=== PATIENT | male | born 1940 | race Caucasian/White ===

== ENCOUNTER 2021-06-24 20:29 | Inpatient (IN) | payer MEDICARE ==
[~2021-06-24] VITALS: Ht 182.9 cm; Wt 118.2 kg
[2021-06-24 22:05] LABS: BASOPHILS # (AUTO) 0.1 X10'3 (0-0.2); BASOPHILS % (AUTO) 0.7 % (0-1); EOSINOPHILS # (AUTO) 0.5 X10'3 (0-0.9); EOSINOPHILS % (AUTO) 5.6 % (0-6); HEMATOCRIT 42.9 % (42.0-52.0); HEMOGLOBIN 14.5 g/dl (14.0-17.9); LYMPHOCYTES # (AUTO) 1.1 X10'3 (1.1-4.8); LYMPHOCYTES % (AUTO) 13.5 % (21-51); MEAN CORPUSCULAR HEMOGLOBIN 33.4 PG (27.0-31.0); MEAN CORPUSCULAR HGB CONC 33.8 g/dL (33.0-36.5); MEAN CORPUSCULAR VOLUME 98.8 FL (78-98); MEAN PLATELET VOLUME 8.5 FL (7.4-10.4); MONOCYTES # (AUTO) 0.6 X10'3 (0-0.9); MONOCYTES % (AUTO) 6.7 % (2-12); NEUTROPHILS # (AUTO) 6.1 X10'3 (1.8-7.7); NEUTROPHILS % (AUTO) 73.5 % (42-75); PLATELET COUNT 208 X10'3 (140-440); RED BLOOD COUNT 4.34 X10'6 (4.70-6.10); RED CELL DISTRIBUTION WIDTH 13.3 % (11.5-14.5); WHITE BLOOD COUNT 8.4 X10'3 (4.5-11.0)
[2021-06-24 22:32] LABS: ALBUMIN 2.8 G/DL (3.4-5.0); ANION GAP 11 (8-16); BLOOD UREA NITROGEN 30 MG/DL (7-18); BUN/CREATININE RATIO 15.2 (5.4-32.0); CALCIUM 7.7 MG/DL (8.5-10.1); CHLORIDE 112 MMOL/L (99-107); CREATININE 1.97 MG/DL (0.60-1.10); POTASSIUM 4.6 MMOL/L (3.5-5.1); SODIUM 145 MMOL/L (135-145); TOTAL CARBON DIOXIDE 22.4 MMOL/L (24-32); eGFR 33 ML/MIN
[2021-06-24 22:56] LABS: GLUCOSE 164 MG/DL (70-104)
--- NOTE | 2021-06-24 23:29 | NUR ---
PT UP OUT OF BED TO BATHROOM . INDEPENDENT STEADY GAIT .
[2021-06-25] MEDS: normal saline 1000ml 1,000 ML IV SCH ×2 (01:40→15:05)
[2021-06-25] MEDS ORDERED: magnesium 4gm in 100ml NS 100 ML IV PRN (01:40)
[2021-06-25] MEDS ORDERED: ondansetron/PF 4mg/2ml inj IV PRN (01:40)
[2021-06-25] MEDS ORDERED: potassium Cl 40MEQ/1/2NS 520ml 520 ML IV PRN ×2 (01:40)
[2021-06-25] MEDS ORDERED: magnesium 2GM in 50ml NS 50 ML IV PRN (01:40)
[2021-06-25] MEDS ORDERED: magnesium Cl slow-release 64mg tablet PO PRN (01:40)
[2021-06-25] MEDS ORDERED: potassium Cl 20 mEq SR tablet PO PRN ×2 (01:40)
[2021-06-25] MEDS ORDERED: acetaminophen 325mg tablet PO PRN ×2 (01:40)
[2021-06-25] MEDS ORDERED: MESSAGE TO PHARMACY PO ONE (01:45)
[2021-06-25] MEDS ORDERED: dextrose ORAL solution 15 GM/59 ML bottle PO PRN ×2 (01:45)
[2021-06-25] MEDS ORDERED: glucagon, human recombinant 1mg kit SUBCUT PRN (01:45)
[2021-06-25] MEDS ORDERED: dextrose 50%-water 50ml dispensing syringe IV PRN ×2 (01:45)
[2021-06-25] MEDS ORDERED: OMEP-50 PO (02:02)
[2021-06-25] MEDS ORDERED: LISI40TA13 PO (02:07)
[2021-06-25] MEDS ORDERED: ATOR10TA70 PO (02:07)
[2021-06-25] MEDS ORDERED: ASPI-611 PO (02:07)
[2021-06-25] MEDS ORDERED: METO-384 PO (02:07)
[2021-06-25] MEDS ORDERED: FLO0.4C PO (02:07)
[2021-06-25] MEDS ORDERED: DOXA4TAB5 PO (02:07)
[2021-06-25] MEDS ORDERED: SENN15TA6 PO (02:09)
--- NOTE | 2021-06-25 06:57 | NUR ---
patient asleep. We will monitor.
[2021-06-25] MEDS: K and/or MAG REPLACEMENT MC SCH ×2 (08:00→19:38)
[2021-06-25] MEDS ORDERED: PERFLUTREN PROTEIN-A MICROSPHR (Optison) 0.22 MG/ML 3ML VIAL IV ONE (08:00)
--- NOTE | 2021-06-25 08:09 | NUR ---
cardiac catheterization technician at bedside doing carotid ultrasound.
[2021-06-25] MEDS: heparin, porcine 5000 units/ml vial SQ SCH ×2 (08:39→20:00)
--- NOTE | 2021-06-25 08:40 | NUR ---
meds still not on emar, will call pharmacy.
--- NOTE | 2021-06-25 08:51 | NUR ---
no morning meds in emar,bp High paged Hospitalist.
--- NOTE | 2021-06-25 09:00 | NUR ---
1400ml yellow urine emptie from urinal.
--- NOTE | 2021-06-25 09:09 | NUR ---
paged Dr. Cochran regarding bp.
--- NOTE | 2021-06-25 09:26 | NUR ---
spoke to Dr. Cochran,ordered hydralazine 5mg IVP Q6 hours prn SBP >160mmhg.Also told her that meds needs to be finalized in med rec, said " ill do it when i get a chance".
[2021-06-25] MEDS: hydrALAZINE 20mg/ml inj. IV PRN ×2 (10:07→17:37)
--- NOTE | 2021-06-25 11:21 | NUR ---
Dr. Cochran aware about aptient's bp inspite of hydralazine,no new order at this time,given MRI screening form.
--- NOTE | 2021-06-25 11:56 | NUR ---
patient to MRI.
--- NOTE | 2021-06-25 14:15 | NUR ---
DR. GARCIA AT BEDSIDE,ORDERED TO DECREASE FLOMAX TO ONE CASPULE, ORTHO BP AND HYDRALAZINE 25MG PO q8 HOURS.
[2021-06-25] MEDS: insulin Lispro (HumaLOG) vial - multi-dose SQ SCH ×2 (14:25→20:42)
--- NOTE | 2021-06-25 14:30 | NUR ---
BP STILL HIGH 200/69,NOT DUE FOR HYDRALAZINE YET,CALLED PHARMACY TO RETIME SCHEDULED HOMEMEDS TO BE DUE NOW EXCEPT FLOMAX AND DOXAZOSINE HE TAKES THESE AT NIGHT.
[2021-06-25] MEDS: hyDRALAzine 10mg tablet PO SCH (15:04)
[2021-06-25] MEDS: metoprolol succinate 25mg (24-HOUR) SR. Tablet PO SCH (15:04)
[2021-06-25] MEDS: aspirin 81mg, enteric-coated 1 TAB TABLET.DR PO SCH (15:05)
[2021-06-25] MEDS: lisinopril 20mg tablet PO SCH (15:05)
--- NOTE | 2021-06-25 19:54 | NUR ---
PT DINNER TRAY PICKED UP BEFORE NUTRITIONAL CARBS MARIAA TO BE CALCULATED AND NO DINNER CARBS DOCUMENTED. DID NOT ADMINISTER NUTRITIONAL INSULIN DOSE DUE TO UNKNOWN CARB INTAKE. BG 227.
[2021-06-25] MEDS: doxazosin mesylate 2mg tablet PO SCH (20:56)
[2021-06-25] MEDS ORDERED: temazepam 15mg capsule PO PRN (21:00)
[2021-06-25] MEDS ORDERED: tamsulosin 0.4mg capsule PO SCH ×3 (21:00)
[2021-06-25] MEDS ORDERED: insulin glargine (Lantus) pen - multi-dose SQ SCH (21:00)
[2021-06-25] MEDS ORDERED: atorvastatin 10mg tablet PO SCH (21:00)
[2021-06-26] MEDS: hydrALAZINE 20mg/ml inj. IV PRN (02:18)
[2021-06-26] MEDS: hyDRALAzine 10mg tablet PO SCH ×2 (02:25→08:00)
[2021-06-26 03:57] LABS: BASOPHILS # (AUTO) 0.1 X10'3 (0-0.2); BASOPHILS % (AUTO) 0.8 % (0-1); EOSINOPHILS # (AUTO) 0.6 X10'3 (0-0.9); EOSINOPHILS % (AUTO) 8.5 % (0-6); HEMATOCRIT 39.5 % (42.0-52.0); HEMOGLOBIN 13.1 g/dl (14.0-17.9); LYMPHOCYTES # (AUTO) 1.7 X10'3 (1.1-4.8); MEAN CORPUSCULAR HEMOGLOBIN 33.2 PG (27.0-31.0); MEAN CORPUSCULAR HGB CONC 33.1 g/dL (33.0-36.5); MEAN CORPUSCULAR VOLUME 100.2 FL (78-98); MEAN PLATELET VOLUME 8.9 FL (7.4-10.4); MONOCYTES # (AUTO) 0.6 X10'3 (0-0.9); MONOCYTES % (AUTO) 8.3 % (2-12); NEUTROPHILS # (AUTO) 4.2 X10'3 (1.8-7.7); NEUTROPHILS % (AUTO) 58.4 % (42-75); PLATELET COUNT 181 X10'3 (140-440); RED BLOOD COUNT 3.94 X10'6 (4.70-6.10); RED CELL DISTRIBUTION WIDTH 13.6 % (11.5-14.5); WHITE BLOOD COUNT 7.2 X10'3 (4.5-11.0)
[2021-06-26 04:17] LABS: ALANINE AMINOTRANSFERASE 17 U/L (12-78); ALBUMIN 2.2 G/DL (3.4-5.0); ALBUMIN/GLOBULIN RATIO 0.7 (1.1-1.5); ALKALINE PHOSPHATASE 72 IU/L (46-116); ANION GAP 8 (8-16); ASPARTATE AMINO TRANSFERASE 18 U/L (10-37); BILIRUBIN,TOTAL 0.5 MG/DL (0.1-1.0); BLOOD UREA NITROGEN 27 MG/DL (7-18); CALCIUM 7.4 MG/DL (8.5-10.1); CHLORIDE 113 MMOL/L (99-107); CHOL/HDL RATIO 3.4 (0.00-4.99); CHOLESTEROL 140 MG/DL (0-200); CREATININE 1.69 MG/DL (0.60-1.10); GLUCOSE 146 MG/DL (70-104); HDL CHOLESTEROL 41 MG/DL (35-60); LDL CHOLESTEROL 67 MG/DL (50-100); MAGNESIUM 1.8 MG/DL (1.5-2.4); POTASSIUM 4.1 MMOL/L (3.5-5.1); SODIUM 146 MMOL/L (135-145); TOTAL CARBON DIOXIDE 24.8 MMOL/L (24-32); TOTAL PROTEIN 5.3 G/DL (6.4-8.2); TRIGLYCERIDES 209 MG/DL (20-135); eGFR 39 ML/MIN
[2021-06-26] MEDS: normal saline 1000ml 1,000 ML IV SCH (06:22)
[2021-06-26] MEDS ORDERED: sennosides 8.6mg tablet PO SCH (08:00)
[2021-06-26] MEDS: K and/or MAG REPLACEMENT MC SCH (08:00)
[2021-06-26] MEDS ORDERED: pantoprazole 40mg Tablet.DR PO SCH (08:00)
[2021-06-26] MEDS: heparin, porcine 5000 units/ml vial SQ SCH (08:50)
[2021-06-26] MEDS: metoprolol succinate 25mg (24-HOUR) SR. Tablet PO SCH (08:51)
[2021-06-26] MEDS: aspirin 81mg, enteric-coated 1 TAB TABLET.DR PO SCH (08:51)
[2021-06-26] MEDS: lisinopril 20mg tablet PO SCH (08:52)
[2021-06-26] MEDS: doxazosin mesylate 2mg tablet PO SCH (09:34)
--- NOTE | 2021-06-26 10:00 | NUR ---
voided 1225 cc clear yellow urine
--- NOTE | 2021-06-26 12:25 | NUR ---
bg 211
--- NOTE | 2021-06-26 12:27 | NUR ---
PT STATES, 'IM FEELING MUCH BETTER AND I WANT TO GO HOME". :" I WANT THE HELL OUT OF HERE"
[2021-06-26] MEDS ORDERED: tamsulosin capsule PO (12:34)
[2021-06-26] MEDS ORDERED: HYDR-4069 PO (12:38)
[2021-06-26 12:48] VITALS: BP 155/61
--- NOTE | 2021-06-26 12:49 | NUR ---
USED PT'S OWN GLUCOMETER, BG 211.
[2021-06-26] MEDS: insulin Lispro (HumaLOG) vial - multi-dose SQ SCH (13:04)
[2021-06-26] MEDS ORDERED: hydrALAZINE 25 MG tablet PO SCH (16:00)
== END 2021-06-26 13:00 | disposition home or self-care (01) | DRG 683 ==
LOC: ER 20:30 → ED HOLD 06-25 01:44
PROVIDERS: ADMIT Internal Medicine; ATTEND Internal Medicine
DX: N17.0 Acute kidney failure with tubular necrosis (principal); G45.9 Transient cerebral ischemic attack, unspecified; I95.1 Orthostatic hypotension; E11.22 Type 2 diabetes mellitus with diabetic chronic kidney disease; E86.9 Volume depletion, unspecified; T44.6X5A Adverse effect of alpha-adrenoreceptor antagonists, initial encounter; I12.9 Hypertensive chronic kidney disease with stage 1 through stage 4 chronic kidney disease, or unspecified chronic kidney disease; R00.1 Bradycardia, unspecified; N18.30 Chronic kidney disease, stage 3 unspecified; N40.0 Benign prostatic hyperplasia without lower urinary tract symptoms; Z79.84 Long term (current) use of oral hypoglycemic drugs; Z88.8 Allergy status to other drugs, medicaments and biological substances; Z72.89 Other problems related to lifestyle; Y92.89 Other specified places as the place of occurrence of the external cause
CPT/HCPCS: 36415; 70551; 71045; 80048; 80053; 80061; 82948; 83036; 83735; 84484; 85025; 93005; 93306; 93880; 99285; G0378; J0360; J1644; J1815; J7030

== ENCOUNTER 2022-10-04 02:09 | Emergency (ER) | payer MEDICARE ==
[~2022-10-04] VITALS: Ht 185.4 cm; Wt 113.6 kg
[~2022-10-04 02:09] MED LIST: ASPI-611 PO; ATOR10TA70 PO; DOXA4TAB5 PO; LISI40TA13 PO; METO-384 PO; OMEP20CA16 PO; SENN15TA6 PO; tamsulosin capsule PO
[2022-10-04 02:34] LABS: BASOPHILS # (AUTO) 0.1 X10'3 (0-0.2); BASOPHILS % (AUTO) 0.8 % (0-1); EOSINOPHILS % (AUTO) 0.6 % (0-6); HEMATOCRIT 32.7 % (42.0-52.0); HEMOGLOBIN 10.3 g/dl (14.0-17.9); LYMPHOCYTES # (AUTO) 2.2 X10'3 (1.1-4.8); LYMPHOCYTES % (AUTO) 32.1 % (21-51); MEAN CORPUSCULAR HEMOGLOBIN 33.5 PG (27.0-31.0); MEAN CORPUSCULAR HGB CONC 31.5 g/dL (33.0-36.5); MEAN CORPUSCULAR VOLUME 106.5 FL (78-98); MEAN PLATELET VOLUME 9.4 FL (7.4-10.4); MONOCYTES # (AUTO) 0.3 X10'3 (0-0.9); MONOCYTES % (AUTO) 4.9 % (2-12); NEUTROPHILS # (AUTO) 4.1 X10'3 (1.8-7.7); NEUTROPHILS % (AUTO) 61.6 % (42-75); PLATELET COUNT 126 X10'3 (140-440); RED BLOOD COUNT 3.07 X10'6 (4.70-6.10); RED CELL DISTRIBUTION WIDTH 14.4 % (11.5-14.5); WHITE BLOOD COUNT 6.7 X10'3 (4.5-11.0)
[2022-10-04 02:46] LABS: ALANINE AMINOTRANSFERASE 33 U/L (12-78); ALBUMIN 1.9 G/DL (3.4-5.0); ALBUMIN/GLOBULIN RATIO 0.7 (1.1-1.5); ALKALINE PHOSPHATASE 89 IU/L (46-116); ANION GAP 19 (8-16); ASPARTATE AMINO TRANSFERASE 40 U/L (10-37); BILIRUBIN,TOTAL 0.4 MG/DL (0.1-1.0); BLOOD UREA NITROGEN 39 MG/DL (7-18); BUN/CREATININE RATIO 11.6 (5.4-32.0); CALCIUM 7.3 MG/DL (8.5-10.1); CHLORIDE 110 MMOL/L (99-107); CREATININE 3.35 MG/DL (0.60-1.10); GLUCOSE 218 MG/DL (70-104); POTASSIUM 4.2 MMOL/L (3.5-5.1); SODIUM 145 MMOL/L (135-145); TOTAL CARBON DIOXIDE 16.5 MMOL/L (24-32); TOTAL PROTEIN 4.7 G/DL (6.4-8.2); eGFR 18 ML/MIN
[2022-10-04] MEDS ORDERED: epiNEPHrine inj 5 MG in normal saline 250ml IV soln 245 ML IV SCH (03:00)
[2022-10-04 03:23] LABS: PLATELET ESTIMATE DECREASED; TOTAL CELLS COUNTED 100
[2022-10-04 03:24] VITALS: BP 125/84
[2022-10-04 03:24] LABS: BURR CELLS 1+; POLYCHROMASIA FEW; SMUDGE CELLS 1+
[2022-10-04 06:32] LABS: ISTAT CREATININE 2.9 mg/dL (0.8-1.3); ISTAT K 4.2 mmol/L (3.5-5.1)
[2022-10-04 06:33] LABS: ISTAT HGB 10.5 g/dl (14.0-17.9); ISTAT IONIZED CALCIUM 1.67 mmol/L (1.03-1.32); POC BUN/CREATININE RATIO 14.8 (5.4-32.0)
[2022-10-04] MEDS ORDERED: calcium chloride 100 MG/1 ML inj IV ONE (08:00)
[2022-10-04] MEDS ORDERED: epiNEPHrine 0.1mg/ml 10ml syringe ONE (08:00)
[2022-10-04] MEDS ORDERED: sodium bicarbonate (8.4%) 1 mEq/ml syringe ONE (08:00)
== END 2022-10-04 07:33 ==
LOC: ER 02:10
DX: I46.9 Cardiac arrest, cause unspecified (principal); I50.9 Heart failure, unspecified; I11.0 Hypertensive heart disease with heart failure; E11.9 Type 2 diabetes mellitus without complications; Z88.8 Allergy status to other drugs, medicaments and biological substances; Z79.82 Long term (current) use of aspirin; Z79.899 Other long term (current) drug therapy
CPT/HCPCS: 31500; 36415; 71045; 80047; 80053; 83605; 83880; 84145; 84484; 85007; 85025; 86885; 86900; 86901; 87040; 92950; 93005; 96365; 96366; 99291; J0171; J3490; J7050; 94002; 94760